=== PATIENT | female | born 2000 | race African-American/Black ===

== ENCOUNTER 2022-04-01 03:48 | Emergency (ER) | payer MEDICAID ==
[~2022-04-01] VITALS: Ht 160 cm; Wt 55.0 kg
[2022-04-01] MEDS ORDERED: SODIUM CHLORIDE 0.9% 1,000 ML IV ONE ×2 (04:45→10:00)
[2022-04-01 06:28] LABS: Basophils # (auto) 0 10 ^3/uL (0-0.2); Eosinophils # (auto) 0 10 ^3/uL (0-0.8); Hemoglobin 8.4 g/dL (12.2-16.2); Monocytes # (auto) 0.5 10 ^3/uL (0-1.3)
[2022-04-01] MEDS ORDERED: IOHEXOL 350 MG/ML 100ML IJ ONE (06:30)
[2022-04-01 06:32] LABS: Basophils % (auto) 0.2 % (0.0-2.0); Hematocrit 25.3 % (36.0-46.0); Lymphocytes # (auto) 0.8 10 ^3/uL (0.4-5.4); Lymphocytes % (auto) 7.5 % (10.0-50.0); Mean Corpuscular Hemoglobin 27.2 pg (28.0-32.0); Mean Corpuscular Hgb Conc. 33.2 g/dL (32.0-36.0); Monocytes % (auto) 4.5 % (0.0-12.0); Neutrophils # (auto) 9.4 10 ^3/uL (1.6-8.6); Neutrophils % (auto) 87.8 % (37.0-80.0); Red Blood Cells 3.08 10^6/uL (4.0-5.20); Red Cell Distribution Width 16.2 % (11.8-14.3); White Blood Cell 10.7 10^3/uL (4.4-10.8)
[2022-04-01 06:45] LABS: Albumin 2.9 g/dL (3.4-5.0); BUN/Creatinine Ratio 14.1; Calcium 6.6 mg/dL (8.5-10.1)
[2022-04-01 06:55] LABS: Bilirubin, Total 0.1 mg/dL (0.2-1.0)
[2022-04-01 06:59] LABS: Potassium 2.7 mmol/L (3.5-5.1)
[2022-04-01] MEDS ORDERED: POTASSIUM EFFERVESENT TAB 25 MEQ PO ONE (07:45)
[2022-04-01] MEDS ORDERED: cefTRIAXone 1GM/50ML D5W 50 ML IV ONE (07:45)
[2022-04-01] MEDS ORDERED: HYDROmorphone HCL 2 MG/ML VL/or syr IV ONE (08:00)
[2022-04-01 12:24] VITALS: BP 110/60
== END 2022-04-01 11:10 | disposition short-term general hospital (02) ==
LOC: ER 03:48
DX: S51.821A Laceration with foreign body of right forearm, initial encounter (principal); T14.8XXA Other injury of unspecified body region, initial encounter; Z20.822 Contact with and (suspected) exposure to COVID-19; W25.XXXA Contact with sharp glass, initial encounter; Y93.89 Activity, other specified; Y92.89 Other specified places as the place of occurrence of the external cause; Y99.8 Other external cause status
CPT/HCPCS: 36415; 73201; 80053; 85025; 86850; 86900; 86901; 87426; 96361; 96365; 96375; 99285; J0696; J1170; J7030; Q9967